=== PATIENT | female | born 2000 | race Caucasian/White ===

== ENCOUNTER → 2018-05-09 18:08 | Observation (INO) ==
[2018-05-09 17:45] LABS: Amphetamine Screen,Urine Negative ng/mL (Cutoff=1000); Barbiturate Screen,Urine Negative ng/mL (Cutoff=200); Benzodiazepines Screen,Urine Negative ng/mL (Cutoff=200); Cannabinoid Screen,Urine Negative ng/mL (Cutoff = 50); Cocaine Screen,Urine Negative ng/mL (Cutoff= 300); Opiate Screen,Urine Negative ng/mL (Cutoff=300); Phencyclidine Screen,Urine Negative ng/mL (Cutoff=25)
--- NOTE | 2018-05-09 18:04 | Discharge Summary ---
Date of Encounter: 05/09/18 Time of Encounter: 18:03 - Discharge Diagnosis (1) 38 weeks gestation of Priority: Primary Status: Acute Comments: admitted for observation (2) NST (non-stress test) reactive on surveillance Priority: Secondary Status: Acute Comments: baseline 135 bpm moderate variability +15x15 accels no decels noted. - Discharge Medications Home Medications: Vit No.124/Iron/FA [ Vitamin Tablet] 1 each PO DAILY 03/09/16 [ History] Docusate [Colace] 100 mg PO BID #60 capsule 06/02/16 [Rx] Ferrous Sulfate 325 mg PO BID #60 tablet 06/02/16 [Rx] Ibuprofen [Motrin] 600 mg PO TID PRN #60 tablet 06/02/16 [Rx] Allergies/Adverse Reactions: 3 Allergy/AdvReac Type Severity Reaction Status Date / Time No Known Allergies Allergy Verified 05/09/18 17:23 Data Procedures and tests throughout hospitalization: Laboratory Tests 05/09/18 17:27 Urine Opiates Screen Negative Ur Barbiturates Screen Negative Ur Phencyclidine Scrn Negative Ur Amphetamines Screen Negative U Benzodiazepines Scrn Negative Urine Cocaine Screen Negative U Marijuana (THC) Screen Negative Labs on day of discharge: Labs from last 24 hours 05/09/18 17:27 Urine Opiates Screen Negative Ur Barbiturates Screen Negative Ur Phencyclidine Scrn Negative Ur Amphetamines Screen Negative U Benzodiazepines Scrn Negative Urine Cocaine Screen Negative U Marijuana (THC) Screen Negative Date of admission: 05/09/18 17:03 Discharging clinician: Mayra Finley Anticipated date of discharge: 05/09/18 - Patient Status Disposition: Home, Self-Care Condition: Good Functional capacity at discharge: independent ambulation - Discharge Instructions Follow Up With: Aashish Menjivar MD [Partnered Physician] - - Diet and Activity Activity: increase activity as tolerated Diet: regular diet 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 Patient reports + movement. Patient denies LOF or VB. Time Attestation: Total time spent providing and/or coordinating discharge services: Time Spent: Less than 30 minutes Exam - Other Additional findings: Patient seen and assessed by RN. FHR 135 bpm moderate variability +15x15 accels no decels noted. Contractions 2-5 min apart. Cat. 1 tracing. SVE 1cm per RN with no cervical change after labor evaluation. - VTE Reasons for not Prescribing Prophylaxis: Treatment not Indicated - Low risk for VTE
== END | disposition home or self-care (01) ==
LOC: 1NENULAB
PROVIDERS: ADMIT Obstetrics & Gynecology; ATTEND Obstetrics & Gynecology

== ENCOUNTER → 2018-05-10 12:50 | Observation (INO) ==
--- NOTE | 2018-05-10 10:56 | OB/GYN Progress Note ---
Date of Encounter: 05/10/18 Time of Encounter: 10:53 - Assessment and Plan (1) 38 weeks gestation of Status: Acute Continue care as scheduled No cervical change after 2 hours Labor precautions given Discharge home Subjective - Subjective Interval history: The cervix is a 18-year-old at 38 weeks 1 day who presents from the office for labor evaluation. She reports that the doctor says her cervix has changed. She denies contractions, leakage of fluid, vaginal bleeding. She endorses good movement. Antepartum ROS: movement normal, no loss of fluid, no vaginal bleeding, no contractions Objective - Vital Signs Vital Signs: Intake and Output 05/09/18 05/10/18 05/10/18 23:59 07:59 15:59 Other: Weight 60.328 kg Patient Weight 05/10/18 23:59 Weight 60.328 kg - Exam FHR: category 1 FHR comments: Baseline 140 Moderate variability Accelerations present 15x15 No decelerations FHR Category I No toco activity Auscultation: bilateral: normal Abdomen: Present: normal appearance, soft, gravid Uterus: Present: normal, firm Cervical dilation: 2-3 per RN Cervix effacement: 60 station: -2
[2018-05-10 11:12] LABS: Amphetamine Screen,Urine Negative ng/mL (Cutoff=1000); Barbiturate Screen,Urine Negative ng/mL (Cutoff=200); Benzodiazepines Screen,Urine Negative ng/mL (Cutoff=200); Cannabinoid Screen,Urine Negative ng/mL (Cutoff = 50); Opiate Screen,Urine Negative ng/mL (Cutoff=300); Phencyclidine Screen,Urine Negative ng/mL (Cutoff=25)
[2018-05-10 11:21] LABS: Cocaine Screen,Urine Negative ng/mL (Cutoff= 300)
[~2018-05-10 12:50] MED LIST: Acetaminophen 325 MG TABLET PO ONE
== END | disposition home or self-care (01) ==
LOC: 1NENULAB
PROVIDERS: ADMIT Obstetrics & Gynecology; ATTEND Obstetrics & Gynecology

== ENCOUNTER 2018-05-12 07:37 | Inpatient (IN) ==
[2018-05-12] MEDS ORDERED: Famotidine 20 MG/2 ML VIAL IVP PRN (07:58)
[2018-05-12] MEDS ORDERED: Naloxone 0.4 MG/ML INJ IVP PRN (07:58)
[2018-05-12] MEDS ORDERED: D5% in Lactated Ringers 1,000 ML IVC SCH (08:00)
[2018-05-12] MEDS ORDERED: Ringers Solution, Lactated 1,000 ML ONE ×2 (08:07→08:28)
[2018-05-12 08:16] LABS: Basophils % 0.5 %; Hemoglobin 11.6 g/dL (11.5-15.4); Immature Granulocytes % 0.5 % (0-4); Mean Corpuscular HGB Conc 31.4 g/dL (31.6-35.5); Mean Corpuscular Hemoglobin 25.5 pg (28.0-33.3); Mean Corpuscular Volume 81.3 fL (83.0-100.0); Mean Platelet Volume 12.5 fL (9.4-12.4); Monocytes % 5.9 %; Platelet Count 364 K/mcL (140-400); Red Blood Count 4.55 M/mcL (3.82-4.97); Red Cell Distribution Width 16.3 % (11.5-14.5); Segmented Neutrophils % 74.1 %
[2018-05-12] MEDS ORDERED: Bupivacaine-MPF 0.25% 10 ML VIAL EP ONE (08:16)
[2018-05-12] MEDS ORDERED: *HR* FentaNYL (PF) 100 MCG/2 ML VIAL EP ONE (08:16)
[2018-05-12 08:17] LABS: Basophils # 0.1 K/mcL (0.0-0.2); Lymphocytes # 2.7 K/mcL (0.6-4.6); Monocytes # 0.8 K/mcL (0.0-1.3); Neutrophils # 10.5 K/mcL (1.6-8.9)
[2018-05-12] MEDS ORDERED: Bupivacaine-MPF 0.25% 10 ML VIAL ONE (08:19)
[2018-05-12] MEDS ORDERED: *HR* FentaNYL (PF) 100 MCG/2 ML VIAL ONE (08:19)
[2018-05-12] MEDS ORDERED: Epidural Premix (fent/bupiv) 110 ML EP ONE (08:22)
[2018-05-12] MEDS ORDERED: Epidural Premix (fent/bupiv) 110 ML EP SCH (08:30)
[2018-05-12 08:42] LABS: Amphetamine Screen,Urine Negative ng/mL (Cutoff=1000); Barbiturate Screen,Urine Negative ng/mL (Cutoff=200); Benzodiazepines Screen,Urine Negative ng/mL (Cutoff=200); Cannabinoid Screen,Urine Negative ng/mL (Cutoff = 50); Cocaine Screen,Urine Negative ng/mL (Cutoff= 300); Opiate Screen,Urine Negative ng/mL (Cutoff=300); Phencyclidine Screen,Urine Negative ng/mL (Cutoff=25)
--- NOTE | 2018-05-12 08:53 | Anesthesia Evaluation PreOp ---
Date of Encounter: 05/12/18 Time of Encounter: 08:20 - Past History Planned Operation: ZUNILDA Cardiac History: Denies any Significant Hx Pulmonary History: Former smoker CELERY PACKER History: Denies Any Significant HX Other Medical History: Denies Any Significant HX Anesthesia History: No Prior Anesthetic Complications (denies h/o NA complications; has never had any procedure requiring GA; denies family h/o GA complications) : Yes Test: Positive Alcohol Use: none Drug use: none Medications and Allergies Vit No.124/Iron/FA [ Vitamin Tablet] 1 each PO DAILY 03/09/16 [ History] Ferrous Sulfate 325 mg PO DAILY 05/12/18 [History] 3 Allergy/AdvReac Type Severity Reaction Status Date / Time No Known Allergies Allergy Verified 05/09/18 17:23 - Meds/Allergy Pre-op Review Medications Reviewed: Yes Allergies Reviewed: Yes Beta Blockers on Current Med List: No Anesthesia Results - Labs 05/12/18 07:56 Anesthesia Exam 123/72, HR 84, RR 24 O2 Sat Height 1.52 m Weight 60 kg NPO (# of Hours): >8hrs Pain Scale: 10 Pain Scale Used: Numeric (1 - 10) - HEENT Pupil (Motor): Pupils equal Mallampati: II Teeth: Normal Oral Opening: Greater than 3 - CELERY PACKER LOC: Oriented CELERY PACKER Motor: Normal RUE, Normal LUE, Normal RLE, Normal LLE, Normal Face CELERY PACKER Sensory: Normal: RUE, LUE, RLE, LLE, Face - Cardiac Rhythm: Regular Murmur: None - Pulmonary Breath Sounds: bilateral Clear Respiratory Effort: Symmetrical Anesthesia Assess/Plan ASA Score: 2 Modified Hamilton Scale for Level of Consciousness: Anixous, agitated or restless Anesthetic Plan: Regional Autologous Blood: No Monitoring Plan: Standard Monitors Recovery Plan: Other
--- NOTE | 2018-05-12 08:56 | Anesthesia Procedures ---
Date of Encounter: 05/12/18 Time of Encounter: 08:54 Procedures: Anesthesia - Epidural/Spinal Patient ID/Chart reviewed: Yes Patient examined: Yes OB Eval: Gestational age: 38 weeks 3 days OB Eval: : 2 OB Eval: Hx Para: 1 OB Eval: Dilated at (cm): 6 OB Eval: Contractions: Non-stressed pattern Consent Obtained: Yes Supplemental Oxygen: None/Room Air Site Prep: Aseptic Technique, Sterile prep and drape, Povidone-Iodine 1% Patient position: upright Local Anesthetic: Lidocaine 1% Amount of Local Anesthetic used: 3 Touhy Needle Gauge: 18 Touhy Needle Depth (cm): 4 Catheter Depth at Skin (cm): 9 Test Dose (1.5% Lido + Epi): Volume given (mls): 5 Test Dose Result: Negative Loading Dose: 0.25% Marcaine (mls): 5 Loading Dose: Fentanyl (mcg): 100 Loading Dose Administered: Thru Catheter Infusion Med: 0.125% Bupivacaine w/ 2 mcg/ml Fentanyl Infusion Rate (mls/hr): [address]: Tegaderm, Tape Interspace Used: L4-L5 Loss of Resistance (SURYA): Yes Blood: No CSF: No Paresthesia: No Procedure: successful on 1st attempt; patient tolerated procedure well Vitals + FHT's: please see Stan DASILVA's electronic records for VS entry
--- NOTE | 2018-05-12 10:10 | OB/GYN History & Physical ---
Date of Encounter: 05/12/18 Time of Encounter: 10:04 Assessment and Plan (1) 38 weeks gestation of Current visit: No Status: Acute (2) Active labor Current visit: No Status: Acute Admit for expectant managment. Pt has epidural. Anticipate . History of Present Illness Chief complaint: contractions HPI: Ms. Blake is a 18 year old female presenting at 38w3d with c/o contractions in active labor. She denies LOF or VB. Good FM. The has been complicated by marijuana use in the beginning and anemia. Blood type A positive. Rubella immune Serologies negative GBS negative. Past Med Surg Social Fam HX - Past Medical History Medical history: no medical history Psychiatric history: no psych history - Past Surgical History Surgical History: no surgical history - Social History Smoking Status: Former smoker Smokeless Tobacco Status: No Alcohol use: none Drug use: none - Family History Mother Adopted: [place]: no medical problems Family Member Ethnicity: Non- Twin of Family Member: Yes, Fraternal Living Status: Still Living Hx Family Cardiac Disorders: No Hx Family Respiratory Disorders: No Hx Family Cancer: No Hx Family GI Disorders: No Hx Family Endocrine Disorder: No Hx Family Neuromuscular Disorders: No Hx Family Neurologic Disorders: No Hx Family HEENT Disorders: No Hx Family Autoimmune Disorders: No Obstetrical History - Pregnancies : 2 Para: 1 Livin - History/Complications History/Complications: Pt denies complications with or delivery Medications and Allergies Vit No.124/Iron/FA [ Vitamin Tablet] 1 each PO DAILY 03/09/16 [ History] Ferrous Sulfate 325 mg PO DAILY 05/12/18 [History] 3 Allergy/AdvReac Type Severity Reaction Status Date / Time No Known Allergies Allergy Verified 05/09/18 17:23 Review of System OB All systems PM: reviewed and no additional remarkable complaints except as stated Exam - Constitutional Constitutional: well developed, well nourished, no acute distress - HEENT HEENT: Mucus Membranes Moist - Lungs Respiratory exam: CTAB - Cardiovascular Cardiovascular exam: RRR - Abdomen Abdomen: Present: gravid, non tender - Extremities Extremities exam: normal inspection - Vulva Vulva: bilateral: normal - Cervix Dilation: 9 (was 6cm on arrival) Effacement: 100 Station: 0 - Anus/Rectum Anus/Rectum: Present: normal perianal skin Results Result Diagrams: 05/12/18 07:56 Abnormal lab results WBC 14.1 K/mcL (4.3-11.1) H 05/12/18 07:56 MCV 81.3 fL (83.0-100.0) L 05/12/18 07:56 MCH 25.5 pg (28.0-33.3) L 05/12/18 07:56 MCHC 31.4 g/dL (31.6-35.5) L 05/12/18 07:56 RDW 16.3 % (11.5-14.5) H 05/12/18 07:56 MPV 12.5 fL (9.4-12.4) H 05/12/18 07:56 Neutrophils # 10.5 K/mcL (1.6-8.9) H 05/12/18 07:56 All other labs normal. - VTE Reasons for not Prescribing Prophylaxis: Treatment not Indicated - Low risk for VTE
[2018-05-12] MEDS ORDERED: Oxytocin 20 units/ LR 1000 mL 20 UNIT/1,000 ML BAG IVC ONE ×2 (10:14→12:31)
--- NOTE | 2018-05-12 11:19 | OB/GYN Procedure Note ---
Delivery - Delivery Date: 05/12/18 Provider: Charline Lee Intrapartum events: none Delivery induction: none Delivery augmentation: rupture of membranes (at 9cm) Delivery monitor: external FHT, external uterine Anesthesia: epidural Quantitated Blood Loss: 100 - Infant (s) Infant A Delivery Date: 05/12/18 Delivery Time: 10:57 Presentation: vertex Position: PORFIRIO Route of delivery: Gender: Female Viability: Viable Pounds: 6 Ounces: 1 at 1 minute: 8 at 5 mins: 9 Shoulder Dystocia: not encountered Placenta: spontaneous Cord: 3 umbilical vessels - Repair Laceration Description: None - Complications Delivery complications: none Delivery comments: Pt presented in active labor and after epidural anesthesia progressed rapidly to complete and +2. She pushed well to over intact perineum. She delivered a viable female "Stephanie" weighing 6lbs 1oz with apgars 8at one minute and 9 at five minutes. After pulsations ceased the cord was clamped and cut and the placenta delivered spontaneous and intact. EBL 100ml. Placenta appears intact. No lacerations noted. Mother and baby stable in DR following procedure. - Disposition Mom disposition: stable in LDR [place] disposition: stable in LDR
[2018-05-12] MEDS ORDERED: Measles/Mumps/Rubella Vacc 0.5 ML VIAL SQ PRN (12:41)
[2018-05-12] MEDS ORDERED: Oxytocin 20 units/ LR 1000 mL 20 UNIT/1,000 ML BAG IVC SCH (12:41)
[2018-05-12] MEDS ORDERED: Acetaminophen 325 MG TABLET PO PRN (12:41)
[2018-05-12] MEDS: Ibuprofen 600 MG TABLET PO PRN (20:51)
[2018-05-13] MEDS: Ibuprofen 600 MG TABLET PO PRN (04:15)
[2018-05-13 08:15] VITALS: BP 105/75
[2018-05-13] MEDS ORDERED: Prenatal Vit/FA 1 EACH TABLET PO SCH (09:00)
--- NOTE | 2018-05-13 10:07 | Discharge Summary ---
Date of Encounter: 05/13/18 Time of Encounter: 10:05 - Discharge Diagnosis (1) Vaginal delivery Priority: Primary Status: Acute Comments: Meeting all PP milestones, tolerates regular diet, bleeding minimal, , desires discharge. - Discharge Medications Prescriptions: Ibuprofen [Motrin] 600 mg PO Q6HR PRN #60 tablet PRN Reason: Cramping Docusate [Colace] 100 mg PO BID #60 capsule Home Medications: Vit No.124/Iron/FA [ Vitamin Tablet] 1 each PO DAILY 03/09/16 [ History] Acetaminophen [Tylenol] 650 mg PO Q6HR PRN tablet 05/13/18 [Rx] Docusate [Colace] 100 mg PO BID #60 capsule 05/13/18 [Rx] Ibuprofen [Motrin] 600 mg PO Q6HR PRN #60 tablet 05/13/18 [Rx] Vit/FA 1 each PO DAILY tablet 05/13/18 [Rx] Allergies/Adverse Reactions: 3 Allergy/AdvReac Type Severity Reaction Status Date / Time No Known Allergies Allergy Verified 05/09/18 17:23 Data Procedures and tests throughout hospitalization: Laboratory Tests 05/12/18 05/12/18 07:56 08:00 WBC 14.1 H RBC 4.55 Hgb 11.6 Hct 37.0 MCV 81.3 L MCH 25.5 L MCHC 31.4 L RDW 16.3 H Plt Count 364 MPV 12.5 H Immature Gran % 0.5 Seg Neutrophils % 74.1 Lymphocytes % 19.0 Monocytes % 5.9 Eosinophils % 0.0 Basophils % 0.5 Neutrophils # 10.5 H Lymphocytes # 2.7 Monocytes # 0.8 Eosinophils # 0.0 Basophils # 0.1 Urine Opiates Screen Negative Ur Barbiturates Screen Negative Ur Phencyclidine Scrn Negative Ur Amphetamines Screen Negative U Benzodiazepines Scrn Negative Urine Cocaine Screen Negative U Marijuana (THC) Screen Negative Date of admission: 05/12/18 07:37 Primary care physician: So Larkin MD Consults: 05/12/18 12:41 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 Car 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 [CONS] Routine Comment: Vaginal delivery, consult needed Discharging clinician: Crystal Navas Anticipated date of discharge: 05/13/18 - Patient Status Disposition: Home, Self-Care Condition: Good Functional capacity at discharge: independent ambulation Overall status at discharge: patient is back to baseline - Discharge Instructions Follow Up With: So Larkin MD [Primary Care Provider] - Crystal Navas CNM [Advanced Practice Nurse] - - Diet and Activity Activity: resume usual activities as tolerated Diet: regular diet Hospital Course Reason for admission: active labor Delivery: Episiotomy: none Laceration: none Other procedures: none complications: none Discharge diagnosis: IUP at term delivered [place] baby: female Hospital course: Delivery - Delivery Date: 05/12/18 Provider: Charline Lee Intrapartum events: none Delivery induction: none Delivery augmentation: rupture of membranes (at 9cm) Delivery monitor: external FHT, external uterine Anesthesia: epidural Quantitated Blood Loss: 100 - Infant (s) Infant A Delivery Date: 05/12/18 Infant Delivery Time: 10:57 Presentation: vertex Position: PORFIRIO Route of delivery: Gender: Female Viability: Viable Pounds: 6 Ounces: 1 at 1 minute: 8 at 5 mins: 9 Shoulder Dystocia: not encountered Placenta: spontaneous Cord: 3 umbilical vessels - Repair Laceration Description: None - Complications Delivery complications: none Delivery comments: Pt presented in active labor and after epidural anesthesia progressed rapidly to complete and +2. She pushed well to [facility] over intact perineum. She delivered a viable female "Stephanie" weighing 6lbs 1oz with apgars 8at one minute and 9 at five minutes. After pulsations ceased the cord was clamped and cut and the placenta delivered spontaneous and intact. EBL 100ml. Placenta appears intact. No lacerations noted. Mother and baby stable in DR following procedure. - Disposition Mom disposition: stable in PP and appropriate for discharge Time Attestation: Total time spent providing and/or coordinating discharge services: Time Spent: Less than 30 minutes Exam - Constitutional Vitals: Temp Pulse Resp BP Pulse Ox 97.8 F 89 12 105/75 98 05/13/18 07:45 05/13/18 07:45 05/13/18 07:45 05/13/18 07:45 05/13/18 07:45 General appearance IM: A&O X 3 - Respiratory Respiratory exam: Present: CTAB - Cardiovascular Cardiovascular exam IM: Present: RRR - GI/Abdominal GI/Abdominal exam IM: normal bowel sounds, soft - Uterine Tone: Firm Uterus Position: At Umbilicus - Extremities Exam Extremities exam IM: Present: normal capillary refill, normal inspection - Neurological Exam Neurological exam: normal gait, oriented X3 - Psychiatric Additional comments: Reports good mood
== END 2018-05-13 11:44 | disposition home or self-care (01) | DRG 560 ==
LOC: 1NENULAB → OBSVTOIN 07:37 → 1NENUOBS 12:46
PROVIDERS: ADMIT Obstetrics & Gynecology; ATTEND Obstetrics & Gynecology

== ENCOUNTER 2020-05-18 15:24 | Inpatient (IN) ==
[~2020-05-18 15:24] MED LIST changes: -Acetaminophen 325 MG TABLET PO ONE; +Azithromycin 500 MG in 0.9 % Sodium Chloride 250 ML IVPB ONE; +Famotidine 20 MG/2 ML VIAL IVP PRN; +Metoclopramide 10 MG/2 ML VIAL IVP PRN; +Naloxone 0.4 MG/ML INJ IVP PRN; +Ondansetron 4 MG/2 ML VIAL IVP PRN
[2020-05-18] MEDS ORDERED: Ringers Solution, Lactated 1,000 ML ONE (15:25)
[2020-05-18] MEDS: Ringers Solution, Lactated 1,000 ML IVC SCH ×2 (15:35→16:49)
[2020-05-18 16:05] LABS: Basophils # 0.1 K/mcL (0.0-0.2); Basophils % 0.4 %; Hematocrit 36.7 % (35.3-44.9); Hemoglobin 11.4 g/dL (11.5-15.4); Immature Granulocytes % 0.4 % (0-4); Lymphocytes # 1.6 K/mcL (0.6-4.6); Lymphocytes % 10.8 %; Mean Corpuscular HGB Conc 31.1 g/dL (31.6-35.5); Mean Corpuscular Hemoglobin 24.9 pg (28.0-33.3); Mean Corpuscular Volume 80.3 fL (83.0-100.0); Monocytes # 0.8 K/mcL (0.0-1.3); Monocytes % 5.2 %; Neutrophils # 12.4 K/mcL (1.6-8.9); Platelet Count 295 K/mcL (140-400); Red Blood Count 4.57 M/mcL (3.82-4.97); Red Cell Distribution Width 15.7 % (11.5-14.5); Segmented Neutrophils % 83.2 %; White Blood Count 14.9 K/mcL (4.3-11.1)
[2020-05-18] MEDS ORDERED: *HR* FentaNYL (PF) 100 MCG/2 ML VIAL EP ONE (16:19)
[2020-05-18] MEDS ORDERED: Bupivacaine-MPF 0.25% 10 ML VIAL EP ONE (16:19)
[2020-05-18] MEDS ORDERED: EPHEDrine 50 MG/ML VIAL IVP PRN (16:19)
[2020-05-18] MEDS ORDERED: Bupivacaine-MPF 0.25% 10 ML VIAL ONE (16:22)
[2020-05-18] MEDS ORDERED: *HR* FentaNYL (PF) 100 MCG/2 ML VIAL ONE (16:22)
[2020-05-18] MEDS ORDERED: Epidural Premix (fent/bupiv) 110 ML EP SCH (16:30)
[2020-05-18 17:31] LABS: Amphetamine Screen,Urine Negative ng/mL (Cutoff=1000); Barbiturate Screen,Urine Negative ng/mL (Cutoff=200); Benzodiazepines Screen,Urine Negative ng/mL (Cutoff=200); Cannabinoid Screen,Urine Negative ng/mL (Cutoff = 50); Cocaine Screen,Urine Negative ng/mL (Cutoff= 300); Opiate Screen,Urine Negative ng/mL (Cutoff=300); Phencyclidine Screen,Urine Negative ng/mL (Cutoff=25)
[2020-05-18] MEDS ORDERED: *HR* HYDROcodone/Acet 5/325 mg TABLET PO PRN (21:26)
[2020-05-18] MEDS ORDERED: Sennosides 8.6 MG TABLET PO PRN (21:26)
[2020-05-18] MEDS ORDERED: Acetaminophen 325 MG TABLET PO PRN (21:26)
[2020-05-18] MEDS ORDERED: Rho Immune Globulin 1,500 UNIT SYRINGE IM PRN (21:26)
[2020-05-18] MEDS ORDERED: Benzocaine/Menthol 56 GM AEROSOL SPRAY TP PRN (21:26)
[2020-05-18] MEDS ORDERED: Oxytocin 20 units/ LR 1000 mL 20 UNIT/1,000 ML BAG IVC SCH (21:26)
[2020-05-18] MEDS ORDERED: Measles/Mumps/Rubella Vacc 0.5 ML VIAL SQ PRN (21:26)
[2020-05-19] MEDS: Ibuprofen 600 MG TABLET PO PRN ×2 (02:00→09:05)
[2020-05-19 06:39] LABS: Basophils # 0.1 K/mcL (0.0-0.2); Basophils % 0.5 %; Hematocrit 31.7 % (35.3-44.9); Hemoglobin 9.6 g/dL (11.5-15.4); Immature Granulocytes % 0.3 % (0-4); Lymphocytes # 1.9 K/mcL (0.6-4.6); Lymphocytes % 15.9 %; Mean Corpuscular HGB Conc 30.3 g/dL (31.6-35.5); Mean Corpuscular Hemoglobin 24.3 pg (28.0-33.3); Mean Corpuscular Volume 80.3 fL (83.0-100.0); Mean Platelet Volume 12.2 fL (9.4-12.4); Monocytes # 1.1 K/mcL (0.0-1.3); Monocytes % 9.1 %; Neutrophils # 8.6 K/mcL (1.6-8.9); Platelet Count 247 K/mcL (140-400); Red Blood Count 3.95 M/mcL (3.82-4.97); Red Cell Distribution Width 15.5 % (11.5-14.5); Segmented Neutrophils % 74.2 %; White Blood Count 11.6 K/mcL (4.3-11.1)
[2020-05-19 07:57] VITALS: BP 112/74
[2020-05-19] MEDS ORDERED: Prenatal Vit/FA 1 EACH TABLET PO SCH (09:00)
== END 2020-05-19 12:30 | disposition home or self-care (01) | DRG 560 ==
LOC: 1NENULAB → 1NENUOBS 21:04
PROVIDERS: ADMIT Obstetrics & Gynecology; ATTEND Obstetrics & Gynecology